=== PATIENT | male | born 1945 | race Caucasian/White ===

== ENCOUNTER 2017-08-05 05:25 | Day surgery (SDC) | payer OTHER ==
[~2017-08-05] VITALS: Ht 182.9 cm; Wt 114.7 kg
[~2017-08-05 05:25] MED LIST: ATORVASTATIN CA20 MG PO; CLONIDINE HCL0.1 MG PO; COREG6.25 M1 PO; HYDRALAZINE HCL25 MG PO; IMDUR60 MG PO; KENALOG,ARISTOC80 G1 TP; LASIX40 MG PO; LOSARTAN POTAS100 MG PO; METFORMIN HCL1000 MG PO; NIASPAN,SLO-N1000 MG PO; PRADAXA150 MG PO; PRAVACHOL20 MG PO; PROPRANOLOL HC120 MG PO; TRIAMCINOLONE A15 GM TP; VITAMIN B-12500 MC2 PO; VITAMIN B-12500 MC5 PO
[2017-08-05 06:16] VITALS: BP 183/91
[2017-08-05] MEDS ORDERED: HYDROCODON-ACE1 EAC7 PO (09:13)
[2017-08-05 10:18] VITALS: BP 157/70
[2017-08-05 11:19] VITALS: BP 160/72
== END 2017-08-05 11:20 | disposition home or self-care (01) ==
LOC: SDC 05:25
PROVIDERS: Student in an Organized Health Care Education/Training Program
PROC: 0WUF4JZ Supplement Abdominal Wall with Synthetic Substitute, Percutaneous Endoscopic Approach (ICD-10-PCS; principal; 2017-08-05)
DX: K42.9 Umbilical hernia without obstruction or gangrene (principal); E66.01 Morbid (severe) obesity due to excess calories; Z68.34 Body mass index [BMI] 34.0-34.9, adult; E11.9 Type 2 diabetes mellitus without complications; E78.5 Hyperlipidemia, unspecified; I48.91 Unspecified atrial fibrillation; I11.0 Hypertensive heart disease with heart failure; I50.9 Heart failure, unspecified; I48.2 Chronic atrial fibrillation
CPT/HCPCS: 82948; C1781; J0690; J1100; J1170; J1885; J2250; J2405; J2710; S0020